=== PATIENT | male | born 1995 | race Caucasian/White ===

== ENCOUNTER 2023-08-16 02:58 | Emergency (ER) | payer OTHER ==
[~2023-08-16] VITALS: Ht 182.9 cm; Wt 102.5 kg
[2023-08-16 03:11] VITALS: BP 130/78; PULSE 75; RESP 15; TEMP 98.5; O2SAT 96
[2023-08-16] MEDS ORDERED: IBUP-1456 PO (04:16)
== END 2023-08-16 05:10 | disposition home or self-care (01) ==
LOC: EEVIPCON 03:09 → ER 03:09
DX: S93.492A Sprain of other ligament of left ankle, initial encounter (principal); Z88.0 Allergy status to penicillin; X58.XXXA Exposure to other specified factors, initial encounter; Y93.39 Activity, other involving climbing, rappelling and jumping off; Y92.89 Other specified places as the place of occurrence of the external cause; Y99.0 Civilian activity done for income or pay
CPT/HCPCS: 73610; 99283; J7030